=== PATIENT | male | born 1945 | race Caucasian/White ===

== ENCOUNTER 2024-02-29 15:14 | Emergency (ER) | payer MEDICARE ==
[~2024-02-29] VITALS: Ht 170.2 cm; Wt 50.0 kg
[2024-02-29 15:28] VITALS: TEMP 98.2
[2024-02-29 18:28] LABS: BASO % 0.5 % (0.0-2.0); EOS # 0.7 K/mm3 (0.0-0.7); GRAN # 5.6 K/mm3 (1.4-6.5); GRAN % 67.9 % (42.2-75.2); LYMPH # 1.2 K/mm3 (1.2-3.4); LYMPH % 15.1 % (20.0-51.0); MEAN CELL VOLUME 92 fl (80.0-100.0); MEAN CORPUSCULAR HEMOGLOBIN 30 pg (27-31); MEAN CORPUSCULAR HGB CONC 33 g/dl (33.0-37.0); MEAN PLATELET VOLUME 9.6 fl (7.4-10.4); MONO # 0.6 K/mm3 (0.1-0.6); MONO % 7.3 % (1.7-9.3); PLATELET COUNT 188 K/mm3 (130-400); RED BLOOD COUNT 3.31 M/mm3 (4.20-5.60); REDCELL DISTRIBUTION WIDTH-CV 16.8 % (11.5-14.5)
[2024-02-29 18:32] LABS: HEMATOCRIT 30.5 % (42.0-52.0)
[2024-02-29 18:45] LABS: ALBUMIN 3.8 g/dL (3.4-4.8); BILIRUBIN,TOTAL 0.7 mg/dL (0.2-1.2); CALCIUM 9.4 mg/dL (8.4-10.2); CREATININE, serum 1.6 mg/dL (0.72-1.25); POTASSIUM 4.4 mEq/L (3.5-4.5); TOTAL PROTEIN 6.7 g/dl (6.2-8.1)
[2024-02-29] MEDS ORDERED: BACTRIM DS 8001 TAB PO (19:16)
[2024-02-29 19:41] VITALS: BP 158/81; PULSE 64
== END 2024-02-29 19:43 | disposition home or self-care (01) ==
LOC: COL.ER 15:14
PROVIDERS: Physician Assistant
DX: L03.032 Cellulitis of left toe (principal); B35.1 Tinea unguium; F17.200 Nicotine dependence, unspecified, uncomplicated